=== PATIENT | male | born 1935 | race Caucasian/White ===

== ENCOUNTER 2020-12-14 15:34 | Observation (INO) ==
[2020-12-14 16:29] LABS: Basophils % 0.2 %; Hematocrit 31.9 % (37.5-50.1); Hemoglobin 10.8 g/dL (12.9-16.9); Immature Granulocytes % 0.8 % (0-4); Lymphocytes # 0.5 K/mcL (0.6-4.6); Lymphocytes % 6.9 %; Mean Corpuscular HGB Conc 33.9 g/dL (31.6-35.5); Mean Corpuscular Hemoglobin 29.1 pg (28.0-33.3); Monocytes # 0.7 K/mcL (0.0-1.3); Monocytes % 11.2 %; Neutrophils # 5.4 K/mcL (1.6-8.9); Platelet Count 215 K/mcL (140-400); Red Blood Count 3.71 M/mcL (4.19-5.50); Red Cell Distribution Width 13.2 % (11.5-14.5); Segmented Neutrophils % 80.9 %; White Blood Count 6.6 K/mcL (4.3-11.1)
[2020-12-14 16:51] LABS: Alanine Aminotransferase 13 Units/L (7-52); Albumin 3.2 g/dL (3.5-5.7); Albumin/Globulin Ratio 1.1 (1.1-2.2); Alkaline Phosphatase 70 Units/L (34-104); Aspartate Amino Transferase 30 Units/L (13-39); BUN/Creatinine Ratio 24 (6-26); Bilirubin,Total 0.4 mg/dL (0.3-1.0); Blood Urea Nitrogen 31 mg/dL (8-23); Calcium 8.2 mg/dL (8.6-10.3); Carbon Dioxide 26 mEq/L (23-29); Chloride 96 mEq/L (98-107); Globulin 2.8 g/dL (2.4-3.5); Glucose 231 mg/dL (70-105); Magnesium 1.4 mg/dL (1.6-2.6); Osmolality,Calculated 290 (280-300); Sodium 133 mEq/L (136-145); eGFR For African Americans > 60 (> 60); eGFR For Non-African Americans 53 (> 60)
[2020-12-14 16:59] LABS: Troponin I 0.11 ng/mL (< 0.04)
[2020-12-14 17:03] LABS: Influenza A PCR Negative (Negative); Influenza B PCR Negative (Negative); Resp. Syncytial Virus PCR Negative (Negative)
[2020-12-14 17:04] LABS: Thyroid Stimulating Hormone 1.631 mcIU/mL (0.340-5.600)
[2020-12-14 17:05] LABS: SARS-CoV-2 by PCR (In House) Positive (Negative)
[2020-12-14] MEDS ORDERED: Isovue-370 500 ML BOTTLE IVP ONE (17:17)
[2020-12-14] MEDS ORDERED: Potassium Chloride Elixir 20 MEQ/15 ML UDC PO ONE (17:50)
[2020-12-14 18:04] LABS: Bilirubin,Urine Negative (Negative); Blood,Urine Moderate (Negative); Clarity,Urine Clear (Clear); Color,Urine Yellow (Yellow); Glucose,Urine (UA) 30 mg/dL (Normal); Hyaline Casts,Urine Few per lpf (None Seen); Ketones,Urine 10 mg/dL (Negative); Leukocyte Esterase,Urine Negative (Negative); Mucus,Urine Few per lpf (None-Few); Nitrite,Urine Negative (Negative); Protein,Urine >=300 mg/dL (Neg-Trace); RBC,Urine 0-3 per hpf (0-3); Specific Gravity,Urine 1.022 (1.010-1.025); Squamous Epithelial Cell,Urine Few per hpf (None-Few); Urobilinogen,Urine Normal (Normal)
[2020-12-14] MEDS ORDERED: Melatonin 3 MG TABLET PO PRN (20:40)
[2020-12-14] MEDS ORDERED: Naloxone 0.4 MG/ML INJ IVP PRN (20:40)
[2020-12-14] MEDS ORDERED: Ondansetron 4 MG/2 ML VIAL IVP PRN (20:40)
[2020-12-14] MEDS ORDERED: D5% in Water 1,000 ML IVC PRN (20:42)
[2020-12-14] MEDS ORDERED: *HR* Dextrose 50 % in Water (Syg) 50 ML SYRINGE IVP PRN (20:42)
[2020-12-14] MEDS ORDERED: Dextrose Gel 15 GM/37.5 ML TUBE PO PRN ×2 (20:42)
[2020-12-14] MEDS ORDERED: Perflutren Lipid Microsphere 1.3 ML in 0.9 % Sodium Chloride 8.7 ML IVP PRN (21:22)
[2020-12-14] MEDS: Acetaminophen 325 MG TABLET PO PRN (21:40)
[2020-12-14] MEDS: Insulin LISPRO 300 UNITS/3 ML VIAL SUBQ SCH (21:56)
[2020-12-14] MEDS ORDERED: Azithromycin 500 MG in 0.9 % Sodium Chloride 250 ML IVPB SCH (22:00)
[2020-12-14] MEDS ORDERED: Ipratropium 1 PUFF INHALER IH PRN (22:00)
[2020-12-14] MEDS ORDERED: Aspirin 325 MG TABLET PO ONE (22:35)
[2020-12-14 23:19] LABS: Troponin I 0.14 ng/mL (< 0.04)
[2020-12-15 02:20] LABS: Hematocrit 32.4 % (37.5-50.1); Hemoglobin 10.7 g/dL (12.9-16.9); Mean Corpuscular Hemoglobin 28.2 pg (28.0-33.3); Mean Corpuscular Volume 85.3 fL (83.0-100.0); Mean Platelet Volume 9.9 fL (9.4-12.4); Platelet Count 213 K/mcL (140-400); Red Cell Distribution Width 13.2 % (11.5-14.5); White Blood Count 8.9 K/mcL (4.3-11.1)
[2020-12-15 02:40] LABS: BUN/Creatinine Ratio 22 (6-26); Blood Urea Nitrogen 30 mg/dL (8-23); Calcium 8.1 mg/dL (8.6-10.3); Carbon Dioxide 28 mEq/L (23-29); Chloride 98 mEq/L (98-107); Glucose 60 mg/dL (70-105); Osmolality,Calculated 288 (280-300); Potassium 2.6 mEq/L (3.5-5.1); Sodium 137 mEq/L (136-145); eGFR For African Americans > 60 (> 60); eGFR For Non-African Americans 50 (> 60)
[2020-12-15 02:45] LABS: C-Reactive Protein 100 mg/L (Less than 10); Lactate Dehydrogenase 274 Units/L (140-271)
[2020-12-15 03:00] LABS: Ferritin 335 ng/mL (20-250)
[2020-12-15] MEDS ORDERED: Magnesium Sulfate 1 GM/102 ML PIGGYBACK IVPB ONE (04:46)
[2020-12-15] MEDS ORDERED: Albuterol 2.5 MG/3 ML NEBULIZER IH PRN (08:04)
[2020-12-15 08:32] LABS: Troponin I 0.15 ng/mL (< 0.04)
[2020-12-15 08:53] LABS: BUN/Creatinine Ratio 26 (6-26); Blood Urea Nitrogen 32 mg/dL (8-23); Calcium 8.1 mg/dL (8.6-10.3); Carbon Dioxide 28 mEq/L (23-29); Chloride 99 mEq/L (98-107); Glucose 72 mg/dL (70-105); Magnesium 1.9 mg/dL (1.6-2.6); Osmolality,Calculated 287 (280-300); Potassium 2.7 mEq/L (3.5-5.1); Sodium 136 mEq/L (136-145); eGFR For African Americans > 60 (> 60); eGFR For Non-African Americans 56 (> 60)
[2020-12-15] MEDS ORDERED: 0.9 % Sodium Chloride 1,000 ML ONE (09:52)
[2020-12-15] MEDS: Insulin LISPRO 300 UNITS/3 ML VIAL SUBQ SCH ×3 (10:03→18:23)
[2020-12-15] MEDS: lisinopriL 5 MG TABLET PO SCH (18:18)
[2020-12-15] MEDS: Acetaminophen 325 MG TABLET PO PRN (20:02)
[2020-12-16] MEDS ORDERED: *HR* Enoxaparin 30 MG/0.3 ML SYRINGE SQ SCH (06:00)
[2020-12-16 08:10] VITALS: TEMP 97.6
[2020-12-16 08:34] LABS: BUN/Creatinine Ratio 34 (6-26); Blood Urea Nitrogen 42 mg/dL (8-23); Calcium 8.3 mg/dL (8.6-10.3); Carbon Dioxide 25 mEq/L (23-29); Chloride 98 mEq/L (98-107); Glucose 329 mg/dL (70-105); Magnesium 1.8 mg/dL (1.6-2.6); Osmolality,Calculated 301 (280-300); Potassium 3.7 mEq/L (3.5-5.1); Sodium 134 mEq/L (136-145); eGFR For African Americans > 60 (> 60); eGFR For Non-African Americans 57 (> 60)
[2020-12-16] MEDS: lisinopriL 5 MG TABLET PO SCH (08:34)
[2020-12-16] MEDS: Insulin LISPRO 300 UNITS/3 ML VIAL SUBQ SCH ×2 (08:35→12:03)
[2020-12-16 09:16] LABS: Basophils % 0.2 %; Hematocrit 33.9 % (37.5-50.1); Immature Granulocytes % 1.1 % (0-4); Lymphocytes # 0.6 K/mcL (0.6-4.6); Lymphocytes % 5.6 %; Mean Corpuscular HGB Conc 32.4 g/dL (31.6-35.5); Mean Corpuscular Hemoglobin 28.5 pg (28.0-33.3); Mean Corpuscular Volume 87.8 fL (83.0-100.0); Mean Platelet Volume 10.9 fL (9.4-12.4); Monocytes # 0.6 K/mcL (0.0-1.3); Monocytes % 5.2 %; Neutrophils # 10.1 K/mcL (1.6-8.9); Platelet Count 210 K/mcL (140-400); Red Blood Count 3.86 M/mcL (4.19-5.50); Red Cell Distribution Width 13.4 % (11.5-14.5); Segmented Neutrophils % 87.9 %; White Blood Count 11.4 K/mcL (4.3-11.1)
[2020-12-16] MEDS ORDERED: Aspirin 81 MG TAB.CHEW PO SCH (10:00)
[2020-12-16] MEDS ORDERED: Spironolactone 25 MG TABLET PO SCH (10:00)
[2020-12-16] MEDS ORDERED: Metoprolol XL (24 HR) Succ 25 MG TAB.ER.24H PO SCH (10:00)
[2020-12-16 12:02] VITALS: BP 149/74; PULSE 83; O2SAT 92
[2020-12-16] MEDS ORDERED: Gabapentin 100 MG CAPSULE PO SCH (21:00)
== END 2020-12-16 17:08 | disposition home health service (06) ==
LOC: EMEROOARM 15:34 → 3NENU 15:34 → SUATTDRO 19:22 → 3NENU 20:42
PROVIDERS: ADMIT Student in an Organized Health Care Education/Training Program; ATTEND Internal Medicine

== ENCOUNTER 2020-12-17 11:41 | Inpatient (IN) ==
[2020-12-17 12:50] LABS: Hematocrit 31.7 % (37.5-50.1); Hemoglobin 10.3 g/dL (12.9-16.9); Mean Corpuscular HGB Conc 32.5 g/dL (31.6-35.5); Mean Corpuscular Hemoglobin 28.1 pg (28.0-33.3); Mean Corpuscular Volume 86.4 fL (83.0-100.0); Mean Platelet Volume 10.4 fL (9.4-12.4); Platelet Count 247 K/mcL (140-400); Red Blood Count 3.67 M/mcL (4.19-5.50); Red Cell Distribution Width 13.7 % (11.5-14.5); White Blood Count 14.6 K/mcL (4.3-11.1)
[2020-12-17 12:59] LABS: Amorphous Sediment,Urine Moderate per hpf (None-Few); Bacteria,Urine Few per hpf (None-Few); Bilirubin,Urine Negative (Negative); Blood,Urine Large (Negative); Clarity,Urine Turbid (Clear); Color,Urine Yellow (Yellow); Glucose,Urine (UA) Normal (Normal); Ketones,Urine 10 mg/dL (Negative); Leukocyte Esterase,Urine Negative (Negative); Nitrite,Urine Negative (Negative); Protein,Urine >=300 mg/dL (Neg-Trace); Specific Gravity,Urine 1.025 (1.010-1.025); Squamous Epithelial Cell,Urine Few per hpf (None-Few); Urobilinogen,Urine Normal (Normal)
[2020-12-17 13:25] LABS: Albumin 3.1 g/dL (3.5-5.7); Albumin/Globulin Ratio 1.1 (1.1-2.2); Bilirubin,Total 0.6 mg/dL (0.3-1.0); Calcium 8.8 mg/dL (8.6-10.3); Globulin 2.7 g/dL (2.4-3.5); Lymphocytes # 1.2 K/mcL (0.6-4.6); Neutrophils # 13.4 K/mcL (1.6-8.9); Platelet Estimate Normal (Normal); Potassium 3.4 mEq/L (3.5-5.1); Total Protein 5.8 g/dL (6.4-8.9); Troponin I 0.21 ng/mL (< 0.04)
[2020-12-17] MEDS ORDERED: Acetaminophen 325 MG TABLET PO PRN (15:14)
[2020-12-17] MEDS ORDERED: Melatonin 3 MG TABLET PO PRN (15:14)
[2020-12-17] MEDS ORDERED: Ondansetron 4 MG/2 ML VIAL IVP PRN (15:14)
[2020-12-17] MEDS ORDERED: Naloxone 0.4 MG/ML INJ IVP PRN (15:14)
[2020-12-17] MEDS: 0.9 % Sodium Chloride 1,000 ML IVC SCH ×2 (15:28→17:58)
[2020-12-17 17:45] LABS: INR 1.3; Prothrombin Time 14.6 Seconds (9.4-12.1)
[2020-12-17 17:59] LABS: Magnesium 1.6 mg/dL (1.6-2.6); Phosphorous 2.5 mg/dL (2.7-4.5)
[2020-12-17] MEDS ORDERED: *HR* Heparin 5,000 UNIT/ML VIAL IVP PRN ×2 (18:25)
[2020-12-17] MEDS ORDERED: *HR* Heparin 5,000 UNIT/ML VIAL IVP ONE (18:25)
[2020-12-17] MEDS ORDERED: Aspirin 325 MG TABLET PO ONE (18:27)
[2020-12-17 19:49] LABS: Hematocrit 29.1 % (37.5-50.1); Hemoglobin 9.6 g/dL (12.9-16.9); Mean Corpuscular Hemoglobin 28.7 pg (28.0-33.3); Mean Corpuscular Volume 87.1 fL (83.0-100.0); Mean Platelet Volume 10.2 fL (9.4-12.4); Platelet Count 212 K/mcL (140-400); Red Blood Count 3.34 M/mcL (4.19-5.50); Red Cell Distribution Width 13.8 % (11.5-14.5); White Blood Count 13.2 K/mcL (4.3-11.1)
[2020-12-17 19:58] LABS: Heparin anti-factor XA UFH < 0.04 IU/mL (0.30-0.70); INR 1.3; Prothrombin Time 14.9 Seconds (9.4-12.1)
[2020-12-17] MEDS: Heparin 25,000UNIT/250ML 1/2NS 25,000 UNIT/250 ML IV.SOLN IVC SCH (20:06)
[2020-12-17 20:53] LABS: Troponin I 0.23 ng/mL (< 0.04)
[2020-12-17] MEDS: Chlorhexidine Rinse 15 ML MOUTHWASH MM SCH ×2 (21:41→22:03)
[2020-12-18 02:37] LABS: VBG HCO3 26 mEq/L (21-27); VBG PCO2 48 mmHg (41-51); VBG PH 7.35 pH Units (7.32-7.42); VBG PO2 36 mmHg (25-50)
[2020-12-18 02:41] LABS: Basophils % 0.1 %; Hematocrit 31.9 % (37.5-50.1); Hemoglobin 10.2 g/dL (12.9-16.9); Immature Granulocytes % 1.1 % (0-4); Lymphocytes # 0.5 K/mcL (0.6-4.6); Lymphocytes % 3.5 %; Mean Corpuscular Hemoglobin 27.9 pg (28.0-33.3); Mean Corpuscular Volume 87.4 fL (83.0-100.0); Mean Platelet Volume 10.5 fL (9.4-12.4); Monocytes # 0.4 K/mcL (0.0-1.3); Neutrophils # 12.7 K/mcL (1.6-8.9); Platelet Count 241 K/mcL (140-400); Red Blood Count 3.65 M/mcL (4.19-5.50); Red Cell Distribution Width 13.9 % (11.5-14.5); Segmented Neutrophils % 92.3 %; White Blood Count 13.7 K/mcL (4.3-11.1)
[2020-12-18 02:52] LABS: Alanine Aminotransferase 32 Units/L (7-52); Albumin 2.8 g/dL (3.5-5.7); Albumin/Globulin Ratio 1.1 (1.1-2.2); Alkaline Phosphatase 63 Units/L (34-104); Aspartate Amino Transferase 78 Units/L (13-39); BUN/Creatinine Ratio 37 (6-26); Bilirubin,Total 0.7 mg/dL (0.3-1.0); Blood Urea Nitrogen 47 mg/dL (8-23); Calcium 8.6 mg/dL (8.6-10.3); Carbon Dioxide 24 mEq/L (23-29); Chloride 104 mEq/L (98-107); Globulin 2.6 g/dL (2.4-3.5); Glucose 311 mg/dL (70-105); Magnesium 1.6 mg/dL (1.6-2.6); Osmolality,Calculated 312 (280-300); Potassium 3.6 mEq/L (3.5-5.1); Sodium 139 mEq/L (136-145); Total Protein 5.4 g/dL (6.4-8.9); eGFR For African Americans > 60 (> 60); eGFR For Non-African Americans 54 (> 60)
[2020-12-18 02:56] LABS: Iron < 10 mcg/dL (65-175)
[2020-12-18 03:17] LABS: Folate 5.5 ng/mL (3.0-16.0)
[2020-12-18 03:21] LABS: Ferritin 446 ng/mL (20-250)
[2020-12-18] MEDS: Ipratropium 1 PUFF INHALER IH SCH ×5 (04:55→21:09)
[2020-12-18] MEDS: Aspirin 81 MG TAB.CHEW PO SCH ×2 (10:49→11:25)
[2020-12-18] MEDS: Chlorhexidine Rinse 15 ML MOUTHWASH MM SCH ×3 (10:50→20:53)
[2020-12-18] MEDS: Metoprolol XL (24 HR) Succ 25 MG TAB.ER.24H PO SCH ×2 (10:50→11:25)
[2020-12-19 00:35] LABS: Basophils % 0.1 %; Hematocrit 26.9 % (37.5-50.1); Hemoglobin 8.7 g/dL (12.9-16.9); Immature Granulocytes % 0.6 % (0-4); Lymphocytes # 0.3 K/mcL (0.6-4.6); Lymphocytes % 2.5 %; Mean Corpuscular HGB Conc 32.3 g/dL (31.6-35.5); Mean Corpuscular Hemoglobin 28.9 pg (28.0-33.3); Mean Corpuscular Volume 89.4 fL (83.0-100.0); Mean Platelet Volume 10.6 fL (9.4-12.4); Monocytes # 0.4 K/mcL (0.0-1.3); Neutrophils # 11.9 K/mcL (1.6-8.9); Platelet Count 244 K/mcL (140-400); Red Blood Count 3.01 M/mcL (4.19-5.50); Red Cell Distribution Width 14.3 % (11.5-14.5); Segmented Neutrophils % 93.8 %; White Blood Count 12.7 K/mcL (4.3-11.1)
[2020-12-19 01:02] LABS: BUN/Creatinine Ratio 39 (6-26); Blood Urea Nitrogen 50 mg/dL (8-23); Calcium 8.4 mg/dL (8.6-10.3); Carbon Dioxide 21 mEq/L (23-29); Chloride 108 mEq/L (98-107); Glucose 394 mg/dL (70-105); Osmolality,Calculated 326 (280-300); Potassium 3.8 mEq/L (3.5-5.1); Sodium 143 mEq/L (136-145); eGFR For African Americans > 60 (> 60); eGFR For Non-African Americans 54 (> 60)
[2020-12-19] MEDS: Ipratropium 1 PUFF INHALER IH SCH ×4 (04:02→20:25)
[2020-12-19] MEDS ORDERED: *HR* LORazepam 2 MG/ML VIAL IVP ONE (05:31)
[2020-12-19 06:08] LABS: ABG Base Excess -2 mEq/L (-2 to 3); ABG HCO3 21 mEq/L (21-27); ABG Oxygen Saturation 93 % (95-98); ABG PCO2 29 mmHg (35-45); ABG PH 7.47 pH Units (7.32-7.45); ABG PO2 60 mmHg (85-104); ABG TCO2 22 mEq/L (20-26)
[2020-12-19] MEDS: Heparin 25,000UNIT/250ML 1/2NS 25,000 UNIT/250 ML IV.SOLN IVC SCH ×2 (09:02→23:37)
[2020-12-19] MEDS: lisinopriL 5 MG TABLET PO SCH (10:34)
[2020-12-19] MEDS: Chlorhexidine Rinse 15 ML MOUTHWASH MM SCH ×2 (10:34→23:11)
[2020-12-19] MEDS: Spironolactone 25 MG TABLET PO SCH ×2 (10:36→13:20)
[2020-12-19] MEDS: Azithromycin 500 MG in 0.9 % Sodium Chloride 250 ML IVPB SCH (10:36)
[2020-12-19] MEDS: Metoprolol XL (24 HR) Succ 25 MG TAB.ER.24H PO SCH ×2 (10:36→13:20)
[2020-12-19] MEDS: Aspirin 81 MG TAB.CHEW PO SCH ×2 (10:36→13:20)
[2020-12-19] MEDS: cefTRIAXone 1,000 MG in Water for inj. (sterile) 10 ML IVP SCH (10:37)
[2020-12-19] MEDS ORDERED: Haloperidol Lactate 5 MG/ML VIAL IVP PRN (11:30)
[2020-12-19] MEDS ORDERED: Apixaban 5 MG TABLET PO SCH (12:00)
[2020-12-19] MEDS ORDERED: Acetaminophen IV 1,000 MG/100 ML BAG IVPB ONE (12:17)
[2020-12-19] MEDS ORDERED: Dextrose Gel 15 GM/37.5 ML TUBE PO PRN ×2 (12:43)
[2020-12-19] MEDS ORDERED: D5% in Water 1,000 ML IVC PRN (12:43)
[2020-12-19] MEDS ORDERED: *HR* Dextrose 50 % in Water (Syg) 50 ML SYRINGE IVP PRN (12:43)
[2020-12-19] MEDS ORDERED: Albumin 25% 25gram/100mL 25 GM/100 ML IV.SOLN IVPB ONE (21:26)
[2020-12-19] MEDS ORDERED: *HR* Heparin 5,000 UNIT/ML VIAL IVP ONE (21:43)
[2020-12-19] MEDS ORDERED: *HR* Heparin 5,000 UNIT/ML VIAL IVP PRN ×2 (21:43)
[2020-12-19] MEDS: Insulin LISPRO 300 UNITS/3 ML VIAL SUBQ SCH ×2 (23:05→23:15)
[2020-12-19 23:11] LABS: INR 1.7; Prothrombin Time 18.4 Seconds (9.4-12.1)
[2020-12-19 23:13] LABS: Activated Partial Thrombo Time 47.7 Seconds (26.0-36.0)
[2020-12-20 02:31] LABS: Heparin anti-factor XA UFH 0.64 IU/mL (0.30-0.70)
[2020-12-20 02:47] LABS: Calcium 8.7 mg/dL (8.6-10.3); Potassium 3.3 mEq/L (3.5-5.1)
[2020-12-20] MEDS: Ipratropium 1 PUFF INHALER IH SCH ×4 (04:11→20:22)
[2020-12-20] MEDS: Insulin LISPRO 300 UNITS/3 ML VIAL SUBQ SCH ×4 (05:54→23:53)
[2020-12-20 06:31] LABS: Hematocrit 27.9 % (37.5-50.1); Mean Corpuscular HGB Conc 34.1 g/dL (31.6-35.5); Mean Corpuscular Hemoglobin 31.8 pg (28.0-33.3); Mean Corpuscular Volume 93.3 fL (83.0-100.0); Mean Platelet Volume 11.2 fL (9.4-12.4); Nucleated Red Blood Cells 0.3 /100 WBC (0); Platelet Count 277 K/mcL (140-400); Red Blood Count 2.99 M/mcL (4.19-5.50); Red Cell Distribution Width 14.3 % (11.5-14.5); White Blood Count 16.9 K/mcL (4.3-11.1)
[2020-12-20 06:33] LABS: Hemoglobin 9.5 g/dL (12.9-16.9)
[2020-12-20 06:57] LABS: Anisocytosis 1+ (Not Present); Monocytes # 1.7 K/mcL (0.0-1.3); Neutrophils # 14.9 K/mcL (1.6-8.9); Poikilocytosis 1+ (Not Present)
[2020-12-20 06:58] LABS: Platelet Estimate Normal (Normal)
[2020-12-20] MEDS ORDERED: *HR* LORazepam 2 MG/ML VIAL IVP ONE (11:33)
[2020-12-20] MEDS: Spironolactone 25 MG TABLET PO SCH (11:37)
[2020-12-20] MEDS: Chlorhexidine Rinse 15 ML MOUTHWASH MM SCH ×2 (11:37→22:21)
[2020-12-20] MEDS: Aspirin 81 MG TAB.CHEW PO SCH (11:37)
[2020-12-20] MEDS: Metoprolol XL (24 HR) Succ 25 MG TAB.ER.24H PO SCH (11:37)
[2020-12-20] MEDS: lisinopriL 5 MG TABLET PO SCH (11:38)
[2020-12-20] MEDS ORDERED: *HR* LORazepam 2 MG/ML VIAL IVP PRN (11:48)
[2020-12-20] MEDS ORDERED: Potassium Chloride 40 MEQ, Lidocaine 1% 2 ML in 0.9 % Sodium Chloride 500 ML IVPB ONE (11:48)
[2020-12-20] MEDS: Azithromycin 500 MG in 0.9 % Sodium Chloride 250 ML IVPB SCH (11:55)
[2020-12-20] MEDS: cefTRIAXone 1,000 MG in Water for inj. (sterile) 10 ML IVP SCH (11:56)
[2020-12-20 14:05] LABS: ABG Base Excess 4 mEq/L (-2 to 3); ABG HCO3 29 mEq/L (21-27); ABG Oxygen Saturation 95 % (95-98); ABG PCO2 44 mmHg (35-45); ABG PH 7.42 pH Units (7.32-7.45); ABG PO2 74 mmHg (85-104); ABG TCO2 30 mEq/L (20-26)
[2020-12-20] MEDS: Piperacillin/Tazobactam 3.375 GM in 0.9 % Sodium Chloride Mini Bag 100 ML IVPB SCH ×2 (22:22→23:26)
[2020-12-20] MEDS: Heparin 25,000UNIT/250ML 1/2NS 25,000 UNIT/250 ML IV.SOLN IVC SCH (22:31)
[2020-12-21] MEDS: Ipratropium 1 PUFF INHALER IH SCH ×2 (04:16→08:21)
[2020-12-21] MEDS: Insulin LISPRO 300 UNITS/3 ML VIAL SUBQ SCH (06:08)
[2020-12-21 06:11] LABS: Transferrin 131 mg/dL (203-362)
[2020-12-21] MEDS: Azithromycin 500 MG in 0.9 % Sodium Chloride 250 ML IVPB SCH (08:38)
[2020-12-21] MEDS: Spironolactone 25 MG TABLET PO SCH (08:51)
[2020-12-21] MEDS: lisinopriL 5 MG TABLET PO SCH (08:53)
[2020-12-21] MEDS: Aspirin 81 MG TAB.CHEW PO SCH (08:53)
[2020-12-21] MEDS: Metoprolol XL (24 HR) Succ 25 MG TAB.ER.24H PO SCH (08:53)
[2020-12-21] MEDS: Chlorhexidine Rinse 15 ML MOUTHWASH MM SCH (08:53)
[2020-12-21] MEDS: Piperacillin/Tazobactam 3.375 GM in 0.9 % Sodium Chloride Mini Bag 100 ML IVPB SCH (09:33)
[2020-12-21 12:07] LABS: Calcium 8.7 mg/dL (8.6-10.3); Potassium 4.4 mEq/L (3.5-5.1)
[2020-12-21] MEDS ORDERED: Scopolamine Patch 1.5 MG PATCH.TD72 TD SCH (12:30)
[2020-12-21] MEDS: *HR* FentaNYL (PF) 100 MCG/2 ML VIAL IVP PRN ×2 (13:02→20:25)
[2020-12-21] MEDS: Haloperidol Lactate 5 MG/ML VIAL IVP PRN ×2 (20:23→22:23)
[2020-12-22] MEDS: *HR* FentaNYL (PF) 100 MCG/2 ML VIAL IVP PRN ×5 (01:37→14:59)
[2020-12-22] MEDS: Haloperidol Lactate 5 MG/ML VIAL IVP SCH ×4 (01:37→18:02)
[2020-12-22] MEDS: Haloperidol Lactate 5 MG/ML VIAL IVP PRN ×2 (09:40→14:59)
[2020-12-22] MEDS: *HR* LORazepam 2 MG/ML VIAL IVP PRN ×3 (09:40→15:00)
[2020-12-22] MEDS ORDERED: Atropine 1% Opth Drops 100 DROP/5 ML BOTTLE SL PRN (09:43)
[2020-12-22] MEDS ORDERED: Acetaminophen 650 MG RECTAL SUPP RC PRN (09:44)
[2020-12-22 15:13] VITALS: BP 76/43; PULSE 111; TEMP 98.2; O2SAT 82
== END 2020-12-22 16:20 | disposition expired | DRG 177 ==
LOC: EMEROOARM 11:41 → 3ANU 11:41 → SUATTDRO 15:01 → 3ANU 16:05 → SUATTDRO 12-19 15:12
PROVIDERS: ADMIT Family Medicine; ATTEND Internal Medicine